=== PATIENT | male | born 1955 | race Caucasian/White ===

== ENCOUNTER 2020-02-04 16:57 | Inpatient (IN) | payer MEDICARE, OTHER ==
[~2020-02-04] VITALS: Ht 182.9 cm; Wt 88.0 kg
--- NOTE | 2020-02-04 17:20 | NUR ---
Pt seen and examined by Dr Escamilla.
[2020-02-04] MEDS ORDERED: LORA-258 PO ×2 (17:40→17:59)
[2020-02-04] MEDS ORDERED: DIVA125C2 PO (17:40)
[2020-02-04] MEDS ORDERED: MAG355OR18 PO (17:40)
[2020-02-04] MEDS ORDERED: TEMA15CA PO (17:40)
[2020-02-04] MEDS ORDERED: MAGN400O6 PO (17:40)
[2020-02-04] MEDS ORDERED: DIVA500T2 PO (17:40)
[2020-02-04] MEDS ORDERED: HALO5TAB PO (17:40)
[2020-02-04] MEDS ORDERED: GABA-532 PO (17:40)
[2020-02-04 17:49] LABS: BASOPHILS # (AUTO) 0.1 K/uL (0.0-8.0); BASOPHILS % (AUTO) 1.1 % (0.0-2.0); EOSINOPHILS # (AUTO) 0.2 K/uL (0.0-0.7); EOSINOPHILS % (AUTO) 2.7 % (0.0-7.0); HEMATOCRIT 36.8 % (36.7-47.1); HEMOGLOBIN 12.3 g/dL (12.5-16.3); LYMPHOCYTES # (AUTO) 2.5 K/uL (20.0-40.0); LYMPHOCYTES % (AUTO) 29.6 % (20.5-51.5); MEAN CORPUSCULAR HEMOGLOBIN 30.7 uug (23.8-33.4); MEAN CORPUSCULAR HGB CONC 33 g/dL (32.5-36.3); MEAN CORPUSCULAR VOLUME 92.1 fL (73.0-96.2); MONOCYTES # (AUTO) 0.9 K/uL (2.0-10.0); NEUTROPHILS # (AUTO) 4.9 K/uL (1.8-8.9); NEUTROPHILS % (AUTO) 56.6 % (38.5-71.5); PLATELET COUNT (AUTO) 439 K/uL (152-348); WHITE BLOOD COUNT (AUTO) 8.6 K/uL (3.6-10.2)
[2020-02-04] MEDS ORDERED: TAMS-3 PO (17:59)
[2020-02-04] MEDS ORDERED: ACET-2154 PO (17:59)
[2020-02-04 18:02] LABS: CREATININE 0.7 mg/dL (0.6-1.3); POTASSIUM 4.3 mmol/L (3.5-5.1)
--- NOTE | 2020-02-04 18:02 | NUR ---
Fluids provided per pt request. No difficulty w/ swallowing.
[2020-02-04 18:08] LABS: ACETAMINOPHEN < 2.0 ug/mL (10-30)
--- NOTE | 2020-02-04 18:18 | NUR ---
Hospital dinner tray provided, Pt ate 100% of food.
--- NOTE | 2020-02-04 19:30 | NUR ---
Received patient from daysmeft RN, unable to collect urine at this time
--- NOTE | 2020-02-04 20:02 | NUR ---
Bertha from crisis team called, states she will arrive on unit for Eval in 1 hour
--- NOTE | 2020-02-04 20:32 | NUR ---
urine sent to lab at this time
[2020-02-04 20:40] LABS: *BILIRUBIN,URIN NEGATIVE (NEGATIVE); *BLOOD, URINE NEGATIVE (NEGATIVE); *CLARITY,URINE CLEAR (CLEAR); *COLOR,URINE YELLOW (YELLOW); *KETONES,URINE NEGATIVE (NEGATIVE); *UROBILINOGEN,URINE 0.2 E.U./dl (NORMAL); LEUKOCYTE ESTERASE ,URINE NEGATIVE (NEGATIVE); NITRITE, URINE NEGATIVE (NEGATIVE)
[2020-02-04 20:45] LABS: UGLUCOSE 1+ (NEGATIVE)
--- NOTE | 2020-02-04 20:48 | NUR ---
Bertha from crisis team noted doing assessment
[2020-02-04 20:50] LABS: *AMPHETAMINE, URINE NEGATIVE (NEGATIVE); *BARBITURATE, URINE NEGATIVE (NEGATIVE); *CANNABINOID, URINE NEGATIVE (NEGATIVE); *COCCAINE, URINE NEGATIVE (NEGATIVE); *OPIATE, URINE NEGATIVE (NEGATIVE); *PHENCYCLIDINE SCREEN,URINE NEGATIVE (NEGATIVE)
--- NOTE | 2020-02-04 21:45 | NUR ---
Patient placed on hold for gravely disabled and danger to others
--- NOTE | 2020-02-04 21:50 | NUR ---
report given to Isrrael JOSEPH on MHU unit bed 145B
--- NOTE | 2020-02-04 22:26 | NUR ---
Pt. admitted to MHU , under care of Dr. Carmen, receiving nurse in Isr[place] RN Belongs List completed and all belongings sent wit patient, no signs of distress
[2020-02-04 22:30] VITALS: BP 150/84
[2020-02-04] MEDS ORDERED: ACETAMINOPHEN 325 MG TABLET PO PRN (22:30)
[2020-02-04] MEDS ORDERED: TEMAZEPAM 7.5 MG CAPSULE PO PRN (22:30)
[2020-02-04] MEDS ORDERED: MAG HYDROX/AL HYDROX/SIMETH 30 ML LIQUID UDC PO PRN ×2 (22:30)
[2020-02-04] MEDS ORDERED: MAGNESIUM HYDROXIDE 30 ML LIQUID UDC PO PRN ×2 (22:30)
[2020-02-04] MEDS ORDERED: BLOOD SUGAR DIAGNOSTIC 1 EACH STRIP VI ONE (22:30)
[2020-02-05 07:44] VITALS: BP 141/86
[2020-02-05] MEDS: TAMSULOSIN HCL 0.4 MG CAP.SR.24H PO SCH ×2 (08:12→17:21)
[2020-02-05] MEDS: GABAPENTIN 100 MG CAPSULE PO SCH ×3 (08:12→17:22)
[2020-02-05] MEDS: NICOTINE 14 MG/24HR PATCH TD SCH (08:12)
[2020-02-05] MEDS: DIVALPROEX 500 MG TABLET.DR PO SCH ×2 (10:15→17:21)
[2020-02-05] MEDS: HALOPERIDOL 5 MG TABLET PO SCH ×2 (10:15→12:18)
--- NOTE | 2020-02-05 10:48 | NUR ---
SW Family Contact: This technical writer and editor contacted pt's cousin Anamaria ([phone]) and left a voicemail in regard to pt's discharge plan and treatment plan.
--- NOTE | 2020-02-05 10:48 | NUR ---
SW Initial Discharge Plan: Patient currently resides at [facility] [address] [place] [address]; ([phone]). This contract writer spoke with admin Lore ([phone]) who stated that pt is welcomed back upon dc. This contract writer contacted pt's cousin Anamaria ([phone]) and left a voicemail in regard to pt's discharge plan and treatment plan. This contract writer will work with the MD, Family, and Treatment team to help coordinate proper discharge plan.
--- NOTE | 2020-02-05 10:49 | NUR ---
Firearms Report: Marine Engineering Professor completed and submitted a [employer] firearms report for 5150 grave disability certification. A copy of report has been placed in patient chart.
[2020-02-05 15:47] VITALS: BP 130/86
[2020-02-05] MEDS ORDERED: HALOPERIDOL 5 MG TABLET PO SCH (17:00)
[2020-02-05] MEDS: BENZTROPINE MESYLATE 1 MG TABLET PO SCH (17:21)
--- NOTE | 2020-02-05 17:55 | NUR ---
received patient is restless and disorganized ,compliant with all po medication ,attends and participated group activity.
[2020-02-05 20:00] VITALS: BP 136/86
[2020-02-05] MEDS ORDERED: DIVALPROEX 500 MG TABLET.DR PO SCH (21:00)
[2020-02-05] MEDS: CLONAZEPAM 0.5 MG TABLET PO PRN (21:32)
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
[2020-02-05] MEDS ORDERED: HALOPERIDOL LACTATE 5 MG/1 ML VIAL IM STA (23:11)
[2020-02-05] MEDS ORDERED: BENZTROPINE MESYLATE 2 MG/2 ML AMPUL IM STA (23:11)
[2020-02-05] MEDS ORDERED: LORAZEPAM 2 MG/1 ML VIAL IM STA (23:11)
--- NOTE | 2020-02-05 23:15 | NUR ---
Patient out of control, aggressive with the staff, unable to be redirected. Dr. Kwok called , orders received for IM injection. Monitoring closely for further behavior escalation.
--- NOTE | 2020-02-05 23:42 | NUR ---
Received patient walking in the hallway AO x2 Hyperverbal ,garbled in speech,disorganized and restless.Redirected and re-orientation rendered.Compliant with medication. Will continue to monitor. Addendum: 02/06/20 at 0110 by JOSH SUAREZ RN Initial sandra 1934:
[2020-02-06] MEDS: CLONAZEPAM 0.5 MG TABLET PO PRN ×3 (06:29→21:23)
--- NOTE | 2020-02-06 06:36 | NUR ---
Patient slept about 4 hrs.Got up walking towards the nurse station ,agitated and insisting to give all his books.PRN med given. Will continue to monitor closely.
[2020-02-06] MEDS ORDERED: LORAZEPAM 2 MG/1 ML VIAL IM ONE (07:30)
[2020-02-06] MEDS ORDERED: HALOPERIDOL LACTATE 5 MG/1 ML VIAL IM ONE (07:30)
--- NOTE | 2020-02-06 07:45 | NUR ---
Patient restless agitated, pacing back and forth the hallway and nurse's station, been disruptive to other patient's and been disrespect-full to staff. Not following commands at this times.
--- NOTE | 2020-02-06 07:48 | NUR ---
Patient medicated as ordered with the help of security staff and discharge rn.
[2020-02-06] MEDS: BENZTROPINE MESYLATE 1 MG TABLET PO SCH ×2 (08:10→16:47)
[2020-02-06] MEDS: TAMSULOSIN HCL 0.4 MG CAP.SR.24H PO SCH ×2 (08:10→16:47)
[2020-02-06] MEDS: GABAPENTIN 100 MG CAPSULE PO SCH ×3 (08:10→16:47)
[2020-02-06] MEDS: HALOPERIDOL 5 MG TABLET PO SCH (08:10)
[2020-02-06] MEDS: NICOTINE 14 MG/24HR PATCH TD SCH (08:10)
[2020-02-06] MEDS ORDERED: BENZTROPINE MESYLATE 2 MG/2 ML AMPUL IM ONE (08:30)
[2020-02-06] MEDS ORDERED: BENZTROPINE MESYLATE 2 MG/2 ML AMPUL IM SCH (09:00)
--- NOTE | 2020-02-06 10:14 | NUR ---
With Pt's Dr. Kwok in the unit patient having another episode of restlessness and agitation, been combative, not following commands. Orders received, and implemented.
[2020-02-06] MEDS ORDERED: OLANZAPINE ZYDIS 5 MG TAB.RAPDIS PO ONE (10:15)
[2020-02-06 11:01] LABS: ALANINE AMINOTRANSFERASE 18 U/L (16-63); ALKALINE PHOSPHATASE 57 U/L (50-136); ASPARTATE AMINOTRANSFERASE 12 U/L (15-37); BILIRUBIN,TOTAL 0.3 mg/dL (0.2-1.0); CARBON DIOXIDE 26 mmol/L (21-32); CHLORIDE 102 mmol/L (98-107); CREATININE 0.6 mg/dL (0.6-1.3); GLUCOSE 124 mg/dL (74-106); POTASSIUM 4.4 mmol/L (3.5-5.1); TOTAL PROTEIN, SERUM 6.2 g/dL (6.4-8.2); UREA NITROGEN, BLOOD 12 mg/dL (7-18)
[2020-02-06 11:24] LABS: BASOPHILS # (AUTO) 0.1 K/uL (0.0-8.0); BASOPHILS % (AUTO) 0.9 % (0.0-2.0); EOSINOPHILS # (AUTO) 0.1 K/uL (0.0-0.7); EOSINOPHILS % (AUTO) 1.3 % (0.0-7.0); HEMATOCRIT 37.7 % (36.7-47.1); HEMOGLOBIN 12.5 g/dL (12.5-16.3); LYMPHOCYTES # (AUTO) 1.8 K/uL (20.0-40.0); LYMPHOCYTES % (AUTO) 24.2 % (20.5-51.5); MEAN CORPUSCULAR HEMOGLOBIN 30.7 uug (23.8-33.4); MEAN CORPUSCULAR HGB CONC 33 g/dL (32.5-36.3); MEAN CORPUSCULAR VOLUME 92.6 fL (73.0-96.2); MONOCYTES # (AUTO) 0.9 K/uL (2.0-10.0); NEUTROPHILS # (AUTO) 4.5 K/uL (1.8-8.9); NEUTROPHILS % (AUTO) 61.6 % (38.5-71.5); PLATELET COUNT (AUTO) 416 K/uL (152-348); RED BLOOD CELL COUNT(AUTO) 4.07 MIL/uL (4.06-5.63); WHITE BLOOD COUNT (AUTO) 7.3 K/uL (3.6-10.2)
--- NOTE | 2020-02-06 11:31 | NUR ---
TABITHA Individual Therapy: This comic book writer attempted to conduct brief therapy with pt, however, pt refused therapy at this moment. Pt's speech is unclear. Pt rambles while this comic book writer attempts to have a conversation. Pt is not cooperative with this comic book writer at this moment.
[2020-02-06] MEDS: OLANZAPINE 5 MG TABLET PO SCH ×2 (12:16→16:47)
[2020-02-06] MEDS ORDERED: OXCARBAZEPINE 150 MG TABLET PO SCH (13:00)
[2020-02-06] MEDS: LORAZEPAM 1 MG TABLET PO PRN ×2 (13:01→20:27)
--- NOTE | 2020-02-06 14:09 | NUR ---
received a call from , , orders made to DC trileptal, verify orders and carried out
[2020-02-06 16:00] VITALS: BP 112/72
[2020-02-06] MEDS: METFORMIN HCL 500 MG TABLET PO SCH (17:00)
--- NOTE | 2020-02-06 20:00 | NUR ---
Received patient restless, pacing in the hallway carrying a book in hand, speech garbled and mumbles when answering questions with saliva drooling. Very distracted; redirected frequently. Advised of fall precautions and safety when in bed. Medicated with Ativan po.
--- NOTE | 2020-02-06 20:08 | NUR ---
Refused VS check by GRINDER MACHINE KNIFE SETTER. Advised. VS taken prior to Ativan po. GJ=518/67, HR=95.
[2020-02-06] MEDS: GABAPENTIN 300 MG CAPSULE PO SCH (20:17)
[2020-02-06 20:25] VITALS: BP 125/67
--- NOTE | 2020-02-06 21:20 | NUR ---
Bed alarms frequently as patient is in and out of bed even after Ativan. Snacks provided per patient's request. Medicated with Klonopin. Compliant with medications.
--- NOTE | 2020-02-07 01:30 | NUR ---
Up to the BR with assistance; gait unsteady. Voided. Fall precautions maintained; monitored closely.
--- NOTE | 2020-02-07 04:30 | NUR ---
Up to the BR every hour to void. Showered with assistance. Back to bed.
[2020-02-07] MEDS: LORAZEPAM 1 MG TABLET PO PRN ×3 (05:36→20:50)
--- NOTE | 2020-02-07 06:52 | NUR ---
Still with on and off mild agitation. In and out of bed, exercising, doing push ups and to the BR often. Had 2 doses of Ativan po last dose 0536. Slept for 5 hours.
[2020-02-07] MEDS ORDERED: OLANZAPINE 10 MG VIAL IM ONE (07:45)
[2020-02-07] MEDS ORDERED: LORAZEPAM 2 MG/1 ML VIAL IM ONE (07:45)
[2020-02-07] MEDS: OLANZAPINE 5 MG TABLET PO SCH ×3 (08:00→20:26)
[2020-02-07] MEDS: NICOTINE 14 MG/24HR PATCH TD SCH (08:00)
[2020-02-07] MEDS: TAMSULOSIN HCL 0.4 MG CAP.SR.24H PO SCH ×2 (08:00→16:33)
[2020-02-07] MEDS: METFORMIN HCL 500 MG TABLET PO SCH ×2 (08:00→17:12)
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
[2020-02-07] MEDS: ACETAMINOPHEN 325 MG TABLET PO SCH (08:02)
[2020-02-07] MEDS: GABAPENTIN 300 MG CAPSULE PO SCH ×4 (08:10→20:25)
[2020-02-07] MEDS ORDERED: risperiDONE-M 0.5 MG TAB.RAPDIS PO SCH (09:30)
[2020-02-07] MEDS: risperiDONE-M 0.5 MG TAB.RAPDIS PO SCH ×3 (09:48→16:34)
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
[2020-02-07 12:11] LABS: ALANINE AMINOTRANSFERASE 16 U/L (16-63); ALKALINE PHOSPHATASE 50 U/L (50-136); ASPARTATE AMINOTRANSFERASE 17 U/L (15-37); BILIRUBIN,TOTAL 0.2 mg/dL (0.2-1.0); CARBON DIOXIDE 29 mmol/L (21-32); CHLORIDE 100 mmol/L (98-107); CHOLESTEROL 155 mg/dL (<200); CREATININE 0.6 mg/dL (0.6-1.3); GLUCOSE 157 mg/dL (74-106); HDL CHOLESTEROL 66 mg/dL (40-60); POTASSIUM 4.3 mmol/L (3.5-5.1); TOTAL PROTEIN, SERUM 6.5 g/dL (6.4-8.2); TRIGLYCERIDES 94 MG/DL (30-150); UREA NITROGEN, BLOOD 12 mg/dL (7-18)
[2020-02-07] MEDS ORDERED: LACTULOSE 20 G/30 ML LIQUID UDC PO ONE ×2 (13:00)
[2020-02-07 20:30] VITALS: BP 109/70
--- NOTE | 2020-02-07 20:50 | NUR ---
GPS: patient restless, pacing in the hallway. 1:1 SITTER monitoring him closely. patient speech garbled and Very distracted; redirected frequently. Medicated with Ativan 1 mg po prn. continue plan of care.MD aware.
--- NOTE | 2020-02-07 21:50 | NUR ---
patient is calm now. prn effective.
[2020-02-07] MEDS: TEMAZEPAM 15 MG CAPSULE PO PRN (22:34)
--- NOTE | 2020-02-08 06:35 | NUR ---
GPS: Patient remains 1:1 sitter @ beds side, most of the night remained restless agitated and pacing back and forth in the hallway. ativan given x1 for agitation and effective. slept 2.45 hrs only after sleeping meds given.. Patient not following commands. continue monitor for safety.
[2020-02-08 07:30] VITALS: BP 122/88
[2020-02-08] MEDS: OLANZAPINE 5 MG TABLET PO SCH ×3 (09:30→20:17)
[2020-02-08] MEDS: NICOTINE 14 MG/24HR PATCH TD SCH (09:34)
[2020-02-08] MEDS: METFORMIN HCL 500 MG TABLET PO SCH ×2 (09:34→17:09)
[2020-02-08] MEDS: risperiDONE-M 0.5 MG TAB.RAPDIS PO SCH ×3 (09:34→16:15)
[2020-02-08] MEDS: GABAPENTIN 300 MG CAPSULE PO SCH ×4 (09:34→20:16)
[2020-02-08] MEDS: TAMSULOSIN HCL 0.4 MG CAP.SR.24H PO SCH ×2 (09:34→16:14)
[2020-02-08] MEDS: LORAZEPAM 1 MG TABLET PO PRN ×3 (10:09→18:20)
--- NOTE | 2020-02-08 12:59 | NUR ---
PC Hearing: Patient had his probable cause hearing today and it was upheld for grave disability and danger to others.
--- NOTE | 2020-02-08 13:00 | NUR ---
Gps/Chief Station Engineer- Remains with 1:1 sitter, patient remains anxious, restless, intrusive, labile mood, loud, staff has difficulty redirecting patient, constant supervision. , gets arguementive. Kept trying to get inside the Nurses station wants to check lockers.
[2020-02-08 16:00] VITALS: BP 133/75
[2020-02-08] MEDS: LITHIUM CARBONATE 150 MG CAPSULE PO SCH (16:13)
[2020-02-08] MEDS: busPIRone 5 MG TABLET PO SCH (16:14)
--- NOTE | 2020-02-08 16:19 | NUR ---
Gps/Switchgear Repairer- Quiet this pm, staying in bed, praying and keeping his bible next to him. remains with a sitter, , close supervision.
[2020-02-08 20:00] VITALS: BP 121/80
--- NOTE | 2020-02-09 05:29 | NUR ---
GPS/ Pt was received in his room with 1:1 sitter by bedside. Pt was awake and unkempt and disheveled. Pt was noted continue talking to himself and frequently walk to the door, bathroom, getting water and putting down on the floor and lay on the floor disorganized behavior. While awake pt is noted constantly moving his books and arrange and rearranging them over and over. per 1:1 pt is very unstable and irritated very easily, and use pressured speech when talking to 1:1. Pt is very delusional and paranoid. Cooperative with routine medications, no PRN given at this time. Will continue monitor. Pt slept about 3.45mins tonight in total.
[2020-02-09 07:30] VITALS: BP 120/76
[2020-02-09] MEDS: METFORMIN HCL 500 MG TABLET PO SCH ×2 (08:10→17:02)
[2020-02-09] MEDS: OLANZAPINE 5 MG TABLET PO SCH ×3 (08:10→20:25)
[2020-02-09 08:11] LABS: BASOPHILS # (AUTO) 0.1 K/uL (0.0-8.0); BASOPHILS % (AUTO) 0.9 % (0.0-2.0); BILIRUBIN,DIRECT 0.2 mg/dL (0.0-0.2); BILIRUBIN,TOTAL 0.4 mg/dL (0.2-1.0); CREATININE 0.7 mg/dL (0.6-1.3); EOSINOPHILS # (AUTO) 0.2 K/uL (0.0-0.7); EOSINOPHILS % (AUTO) 2.7 % (0.0-7.0); HEMATOCRIT 39.3 % (36.7-47.1); LYMPHOCYTES # (AUTO) 1.9 K/uL (20.0-40.0); LYMPHOCYTES % (AUTO) 24.8 % (20.5-51.5); MEAN CORPUSCULAR HEMOGLOBIN 30.6 uug (23.8-33.4); MEAN CORPUSCULAR HGB CONC 33 g/dL (32.5-36.3); MEAN CORPUSCULAR VOLUME 92.2 fL (73.0-96.2); MONOCYTES # (AUTO) 0.9 K/uL (2.0-10.0); MONOCYTES % (AUTO) 11.8 % (0.0-11.0); NEUTROPHILS # (AUTO) 4.6 K/uL (1.8-8.9); NEUTROPHILS % (AUTO) 59.8 % (38.5-71.5); PLATELET COUNT (AUTO) 429 K/uL (152-348); RED BLOOD CELL COUNT(AUTO) 4.26 MIL/uL (4.06-5.63); TOTAL PROTEIN, SERUM 6.8 g/dL (6.4-8.2); WHITE BLOOD COUNT (AUTO) 7.7 K/uL (3.6-10.2)
[2020-02-09] MEDS: TAMSULOSIN HCL 0.4 MG CAP.SR.24H PO SCH ×2 (08:11→16:29)
[2020-02-09] MEDS: risperiDONE-M 0.5 MG TAB.RAPDIS PO SCH ×3 (08:11→16:28)
[2020-02-09] MEDS: busPIRone 5 MG TABLET PO SCH ×3 (08:11→16:29)
[2020-02-09] MEDS: GABAPENTIN 300 MG CAPSULE PO SCH ×4 (08:11→20:24)
[2020-02-09] MEDS: LITHIUM CARBONATE 150 MG CAPSULE PO SCH ×3 (08:12→16:31)
[2020-02-09] MEDS: NICOTINE 14 MG/24HR PATCH TD SCH (08:12)
--- NOTE | 2020-02-09 14:30 | NUR ---
The patient had lunch. The tech will perform Ultrasiund tomorrow morning, RN noted.
[2020-02-09] MEDS: LORAZEPAM 1 MG TABLET PO PRN ×2 (15:13→22:43)
--- NOTE | 2020-02-09 16:38 | NUR ---
Gps/Reforestation Worker- Bizarre behavior, noted sitting on the toilet commode, with pillow , reading his bible, talking to himself. Mumbles , discouraged from talking fast , words unclear . Remains with a sitter , needed constant redirections, , restless, fidgety , unpredictable behavior..
[2020-02-09] MEDS ORDERED: busPIRone 5 MG TABLET PO SCH (17:00)
[2020-02-09] MEDS ORDERED: LITHIUM CARBONATE 150 MG CAPSULE PO ONE (17:00)
[2020-02-09] MEDS ORDERED: busPIRone 5 MG TABLET PO ONE (17:05)
[2020-02-09 20:00] VITALS: BP 136/82
--- NOTE | 2020-02-09 22:45 | NUR ---
Gps: patient noted anxious, restless, intrusive, labile mood, loud, staff has difficulty redirecting patient, Kept trying to get inside the Nurses station. ativan 1 mg po given for agitation.
--- NOTE | 2020-02-09 23:45 | NUR ---
gps: patient is calm now. prn effective for agitation.
[2020-02-10] MEDS: TEMAZEPAM 15 MG CAPSULE PO PRN ×2 (01:02→22:23)
--- NOTE | 2020-02-10 05:48 | NUR ---
GPS: Patient remains 1:1 sitter @ beds side, most of the night remained restless agitated and pacing back and forth in the hallway. ativan given x1 for agitation and effective. Patient not following commands. continue monitor for safety.
--- NOTE | 2020-02-10 06:30 | NUR ---
slept 4 hrs through the night after sleeping meds given.
[2020-02-10] MEDS: LORAZEPAM 1 MG TABLET PO PRN ×3 (07:00→18:40)
--- NOTE | 2020-02-10 07:01 | NUR ---
patient is very aggressive,screaming loud pacing back and forth in the hallway. ativan 1 mg po given for agitation.
[2020-02-10 07:30] VITALS: BP 118/77
[2020-02-10] MEDS: GABAPENTIN 300 MG CAPSULE PO SCH ×4 (08:10→20:22)
[2020-02-10] MEDS: busPIRone 5 MG TABLET PO SCH ×3 (08:10→16:10)
[2020-02-10] MEDS: NICOTINE 14 MG/24HR PATCH TD SCH (08:10)
[2020-02-10] MEDS: LITHIUM CARBONATE 300 MG CAPSULE PO SCH ×2 (08:10→16:11)
[2020-02-10] MEDS: TAMSULOSIN HCL 0.4 MG CAP.SR.24H PO SCH ×2 (08:11→16:11)
[2020-02-10] MEDS: OLANZAPINE 5 MG TABLET PO SCH ×3 (08:11→20:22)
[2020-02-10] MEDS: risperiDONE-M 0.5 MG TAB.RAPDIS PO SCH ×3 (08:11→16:10)
[2020-02-10] MEDS: METFORMIN HCL 500 MG TABLET PO SCH ×2 (08:12→17:22)
--- NOTE | 2020-02-10 09:00 | NUR ---
Gps/Aircraft Manager - Calmer at this time, in his room sitting at the dge of his bed, reading his bible, abrupt movements , appeared like he is going to attack someone, staff needing to be firm with patient in giving instructions.Hyperverbal /mumbles , speech gets garbled , instructed to talk slower to be able to understand . Always asking for more food .
--- NOTE | 2020-02-10 09:36 | NUR ---
The patient is combative. Unable to perform the exam. RN Kellee Goodson noted.
[2020-02-10] MEDS ORDERED: risperiDONE 0.5 MG TABLET PO ONE (12:45)
[2020-02-10 16:30] VITALS: BP 139/61
--- NOTE | 2020-02-10 16:33 | NUR ---
Gps/Funeral Home Makeup Artist- Walks around carrying his books , restless, fidgety , hyperverbal, encouraged to talk slower, speech gets garbled when talking fast, constantly asking for something.
--- NOTE | 2020-02-10 18:27 | NUR ---
Gps/Prize Jacker-Showered self with min assist, > anxious, kept coming inside the Nurses station, needing constant redirections, remains with a sitter for safety, continue to monitor behavior, set limits.
[2020-02-10 20:00] VITALS: BP 126/69
[2020-02-11 09:28] VITALS: BP 115/74
[2020-02-11] MEDS: TAMSULOSIN HCL 0.4 MG CAP.SR.24H PO SCH ×2 (09:39→17:04)
[2020-02-11] MEDS: busPIRone 5 MG TABLET PO SCH ×3 (09:39→17:00)
[2020-02-11] MEDS: OLANZAPINE 5 MG TABLET PO SCH ×3 (09:39→20:29)
[2020-02-11] MEDS: risperiDONE-M 0.5 MG TAB.RAPDIS PO SCH ×3 (09:39→17:00)
[2020-02-11] MEDS: GABAPENTIN 300 MG CAPSULE PO SCH ×4 (09:39→20:29)
[2020-02-11] MEDS: LITHIUM CARBONATE 300 MG CAPSULE PO SCH ×2 (09:39→17:00)
[2020-02-11] MEDS: METFORMIN HCL 500 MG TABLET PO SCH ×2 (09:39→17:00)
[2020-02-11] MEDS: NICOTINE 14 MG/24HR PATCH TD SCH (09:39)
--- NOTE | 2020-02-11 10:51 | NUR ---
TABITHA Individual Therapy Note: SW met with pt to provide brief counseling. Pt appeared verbally abusive towards the advertising copywriter and was unable to have a proper conversation due to his unclear speech. This advertising copywriter was unable to provide brief counseling at this moment.
[2020-02-11 15:27] LABS: *BILIRUBIN,URIN NEGATIVE (NEGATIVE); *BLOOD, URINE NEGATIVE (NEGATIVE); *CLARITY,URINE CLEAR (CLEAR); *COLOR,URINE YELLOW (YELLOW); *KETONES,URINE NEGATIVE (NEGATIVE); *UROBILINOGEN,URINE 0.2 E.U./dl (NORMAL); LEUKOCYTE ESTERASE ,URINE NEGATIVE (NEGATIVE); NITRITE, URINE NEGATIVE (NEGATIVE)
[2020-02-11 15:29] LABS: UGLUCOSE 2+ (NEGATIVE)
[2020-02-11 16:00] VITALS: BP 133/88
[2020-02-11 17:56] VITALS: BP 133/88
[2020-02-11 20:00] VITALS: BP 132/78
[2020-02-11] MEDS: LORAZEPAM 1 MG TABLET PO PRN (20:29)
[2020-02-11] MEDS: TEMAZEPAM 15 MG CAPSULE PO PRN (21:39)
[2020-02-11] MEDS ORDERED: BENZTROPINE MESYLATE 2 MG/2 ML AMPUL IM STA (22:34)
[2020-02-11] MEDS ORDERED: diphenhydrAMINE 50 MG/1 ML VIAL IM STA (22:34)
[2020-02-11] MEDS ORDERED: HALOPERIDOL LACTATE 5 MG/1 ML VIAL IM STA (22:34)
--- NOTE | 2020-02-12 05:01 | NUR ---
GPS- 1920: During round making noted pt already restless and responding to internal stimuli and moving back and forth in room to TV room and nursing station. Pt continually requesting for something and unable to express it clearly, staffs attempted to give him his books but he will become more irritated and angry. Pt unable to be redirected or reality oriented due to diagnosis. Patient assigned to 1:1 sitter pt behavior was not to controlled or managed by sitter present. PRN ativan was administered with no effect. Pt was acting very dangerous to staffs and peers, intrusive and unable to redirect. Medication was not effect. Restoril was given too and still not effective. Pt was becoming too aggressive and continue outburst and was not able to keep calm. Deu to Fear of harm to others PRN IM Haloperidol 5mg, Benztropine 2mg and Benadryl 25mg order received from Rissa Gunter x1. Order was administered with systems security consultant. Pt was monitor and no effect of medications. Still exhibiting outburst and not able to sleep. Will continue to monitor pt and will endorse to incoming nurse.
[2020-02-12 07:50] VITALS: BP 146/89
[2020-02-12] MEDS: METFORMIN HCL 500 MG TABLET PO SCH ×2 (08:46→17:13)
[2020-02-12] MEDS: risperiDONE-M 0.5 MG TAB.RAPDIS PO SCH ×3 (08:46→17:14)
[2020-02-12] MEDS: GABAPENTIN 300 MG CAPSULE PO SCH ×4 (08:46→20:47)
[2020-02-12] MEDS: TAMSULOSIN HCL 0.4 MG CAP.SR.24H PO SCH ×2 (08:47→17:13)
[2020-02-12] MEDS: busPIRone 5 MG TABLET PO SCH (08:47)
[2020-02-12] MEDS: LITHIUM CARBONATE 300 MG CAPSULE PO SCH ×2 (08:47→17:13)
[2020-02-12] MEDS: NICOTINE 14 MG/24HR PATCH TD SCH (08:50)
[2020-02-12] MEDS: OLANZAPINE 5 MG TABLET PO SCH ×2 (09:09→20:57)
[2020-02-12] MEDS: LORAZEPAM 1 MG TABLET PO SCH ×2 (12:31→17:13)
[2020-02-12] MEDS: BENZTROPINE MESYLATE 0.5 MG TABLET PO SCH ×2 (12:31→17:14)
[2020-02-12] MEDS: MEMANTINE HCL 5 MG TABLET PO SCH ×2 (12:32→20:46)
[2020-02-12 15:58] VITALS: BP 132/79
--- NOTE | 2020-02-12 18:02 | NUR ---
Patient remains the same. Still intrusive, rambling, garbled speech. Unable to have meaningful conversation. This patient is labile and easily angered, therefore has a sitter 1:1 . Continuing to monitor for safety of staff and patient, behavior escalation and combativeness. Patient has been medication compliant but very difficult to redirect.
[2020-02-12 19:40] VITALS: BP 116/75
[2020-02-12] MEDS: TEMAZEPAM 15 MG CAPSULE PO SCH (20:46)
--- NOTE | 2020-02-13 06:12 | NUR ---
GPS - Pt was received in his room, 1:1 male sitter at bedside. Pt still noted with disorganized thinking confuse. Sitter was able to reframe pt and he was more confined to his room. Pt was noted praying, talking and doing push ups lying on the floor frequently and rapidly moving from bed to floor. Cooperative with routine medication and new order for Restoril was given and noted some effect with other medications. Pt later on fall asleep. Monitor with 1:1 sitter by bedside.
--- NOTE | 2020-02-13 06:21 | NUR ---
During med pass pt accidentally dropped his med cup and the floor and Zyprexa was stepped on, replaced with another one and documented.
[2020-02-13 06:57] LABS: BILIRUBIN,TOTAL 0.4 mg/dL (0.2-1.0); CREATININE 0.7 mg/dL (0.6-1.3); POTASSIUM 4.1 mmol/L (3.5-5.1); TOTAL PROTEIN, SERUM 6.9 g/dL (6.4-8.2)
[2020-02-13 07:18] LABS: BASOPHILS # (AUTO) 0.1 K/uL (0.0-8.0); BASOPHILS % (AUTO) 0.9 % (0.0-2.0); EOSINOPHILS # (AUTO) 0.3 K/uL (0.0-0.7); EOSINOPHILS % (AUTO) 3.7 % (0.0-7.0); HEMATOCRIT 39.1 % (36.7-47.1); HEMOGLOBIN 13.2 g/dL (12.5-16.3); LYMPHOCYTES # (AUTO) 1.9 K/uL (20.0-40.0); LYMPHOCYTES % (AUTO) 25.7 % (20.5-51.5); MEAN CORPUSCULAR HEMOGLOBIN 30.9 uug (23.8-33.4); MEAN CORPUSCULAR HGB CONC 34 g/dL (32.5-36.3); MEAN CORPUSCULAR VOLUME 91.8 fL (73.0-96.2); MONOCYTES # (AUTO) 0.9 K/uL (2.0-10.0); MONOCYTES % (AUTO) 12.1 % (0.0-11.0); NEUTROPHILS # (AUTO) 4.2 K/uL (1.8-8.9); NEUTROPHILS % (AUTO) 57.6 % (38.5-71.5); PLATELET COUNT (AUTO) 402 K/uL (152-348); RED BLOOD CELL COUNT(AUTO) 4.26 MIL/uL (4.06-5.63); WHITE BLOOD COUNT (AUTO) 7.3 K/uL (3.6-10.2)
[2020-02-13 07:30] VITALS: BP 118/76
[2020-02-13] MEDS: METFORMIN HCL 500 MG TABLET PO SCH ×2 (08:00→16:23)
[2020-02-13] MEDS: MEMANTINE HCL 5 MG TABLET PO SCH ×2 (08:00→20:26)
[2020-02-13] MEDS: BENZTROPINE MESYLATE 0.5 MG TABLET PO SCH ×3 (08:00→16:23)
[2020-02-13] MEDS: TAMSULOSIN HCL 0.4 MG CAP.SR.24H PO SCH ×2 (08:00→16:24)
[2020-02-13] MEDS: GABAPENTIN 300 MG CAPSULE PO SCH ×4 (08:00→20:26)
[2020-02-13] MEDS: LITHIUM CARBONATE 300 MG CAPSULE PO SCH ×2 (08:00→16:23)
[2020-02-13] MEDS: risperiDONE-M 0.5 MG TAB.RAPDIS PO SCH ×3 (08:01→16:22)
[2020-02-13] MEDS: LORAZEPAM 1 MG TABLET PO SCH ×3 (08:01→16:23)
[2020-02-13] MEDS: OLANZAPINE 5 MG TABLET PO SCH (08:01)
[2020-02-13] MEDS: NICOTINE 14 MG/24HR PATCH TD SCH (08:02)
--- NOTE | 2020-02-13 08:18 | NUR ---
CALLED AND SPOKE WITH , WITH ORDERS TO LIGIA SITTER, ORDERS MADE AND CARRIED OUT
[2020-02-13] MEDS ORDERED: OLANZAPINE 2.5 MG TABLET PO SCH (13:15)
[2020-02-13 16:00] VITALS: BP 113/80
[2020-02-13] MEDS: OLANZAPINE 2.5 MG TABLET PO SCH (16:23)
[2020-02-13] MEDS: TEMAZEPAM 15 MG CAPSULE PO SCH (20:27)
[2020-02-13 20:41] VITALS: BP 122/76
[2020-02-13] MEDS ORDERED: LITHIUM CARBONATE 150 MG CAPSULE PO SCH (21:00)
[2020-02-13] MEDS: TEMAZEPAM 15 MG CAPSULE PO PRN (23:25)
[2020-02-13] MEDS: ACETAMINOPHEN 325 MG TABLET PO SCH (23:26)
--- NOTE | 2020-02-14 06:56 | NUR ---
PT SLEPT 6.15 HOURS. PT IN NO ACUTE DISTRESS. PRESCRIBED MEDICATION GIVEN AND PT TOLERATED IT WELL. PT PLEASANT WHEN APPROACHED. COOPERATIVE WITH CARE. AT 2325H RESTORIL GIVEN . PT TOLERATED IT WELL. PT STILL NOT SLEEPY. ADVISED PT TO TURN OFF LIGHTS AND STOP READING AND RELAX. AFTER AN HOUR PT FOUND SLEEPING . PT GIVEN TYLENOL PRN PER PT HAVE PAIN . PT HAVE A RELEIF OF PAIN AFTER AN HOUR. SAFETY AND COMFORT PROVIDED. WILL ENDORSE TO INCOMING NURSE FOR CONTINUITY OF CARE.
[2020-02-14 08:00] VITALS: BP 140/83
[2020-02-14] MEDS: METFORMIN HCL 500 MG TABLET PO SCH ×2 (08:52→16:51)
[2020-02-14] MEDS: GABAPENTIN 300 MG CAPSULE PO SCH ×4 (08:52→20:37)
[2020-02-14] MEDS: BENZTROPINE MESYLATE 0.5 MG TABLET PO SCH ×3 (08:52→16:52)
[2020-02-14] MEDS: risperiDONE-M 0.5 MG TAB.RAPDIS PO SCH ×3 (08:52→16:50)
[2020-02-14] MEDS: TAMSULOSIN HCL 0.4 MG CAP.SR.24H PO SCH ×2 (08:52→16:51)
[2020-02-14] MEDS: LITHIUM CARBONATE 300 MG CAPSULE PO SCH ×3 (08:52→20:37)
[2020-02-14] MEDS: LORAZEPAM 1 MG TABLET PO SCH ×3 (08:52→16:52)
[2020-02-14] MEDS: OLANZAPINE 2.5 MG TABLET PO SCH ×3 (08:53→16:51)
[2020-02-14] MEDS: MEMANTINE HCL 5 MG TABLET PO SCH ×2 (08:53→20:36)
[2020-02-14] MEDS: NICOTINE 14 MG/24HR PATCH TD SCH (08:54)
[2020-02-14 15:08] VITALS: BP 110/68
--- NOTE | 2020-02-14 17:00 | NUR ---
Gps/Water Main Inspector- Showered self ind. after set up. Had been cooperative with staff, continued to be meds. compliant. Gets intrusive from time to time but had been redirectable.Walks [place] carrying his bible and books.
[2020-02-14 20:00] VITALS: BP 144/83
[2020-02-14] MEDS: TEMAZEPAM 15 MG CAPSULE PO SCH (20:37)
[2020-02-14] MEDS ORDERED: LITHIUM CARBONATE 150 MG CAPSULE PO SCH (21:00)
[2020-02-14] MEDS ORDERED: LITHIUM CARBONATE 300 MG CAPSULE PO SCH (21:00)
--- NOTE | 2020-02-15 06:31 | NUR ---
Received patient last night in the day room, sitting watching TV. Patients behavior noted to be more pleasant and has more patience with the staff and peers. No acute behavioral issues noted last night Patient slept 5.30 hours.
[2020-02-15] MEDS: LORAZEPAM 1 MG TABLET PO PRN (06:47)
[2020-02-15 07:30] VITALS: BP 110/78
[2020-02-15] MEDS: METFORMIN HCL 500 MG TABLET PO SCH ×2 (09:01→17:20)
[2020-02-15] MEDS: TAMSULOSIN HCL 0.4 MG CAP.SR.24H PO SCH ×2 (09:02→17:20)
[2020-02-15] MEDS: LITHIUM CARBONATE 300 MG CAPSULE PO SCH ×3 (09:02→20:42)
[2020-02-15] MEDS: LORAZEPAM 1 MG TABLET PO SCH ×3 (09:02→17:20)
[2020-02-15] MEDS: BENZTROPINE MESYLATE 0.5 MG TABLET PO SCH ×3 (09:02→17:20)
[2020-02-15] MEDS: GABAPENTIN 300 MG CAPSULE PO SCH ×4 (09:02→20:41)
[2020-02-15] MEDS: OLANZAPINE 2.5 MG TABLET PO SCH ×3 (09:02→17:20)
[2020-02-15] MEDS: risperiDONE-M 0.5 MG TAB.RAPDIS PO SCH ×3 (09:03→17:21)
[2020-02-15] MEDS: MEMANTINE HCL 5 MG TABLET PO SCH ×2 (09:03→20:41)
[2020-02-15] MEDS: NICOTINE 14 MG/24HR PATCH TD SCH (09:04)
[2020-02-15 16:00] VITALS: BP 113/64
[2020-02-15 20:15] VITALS: BP 122/88
[2020-02-15] MEDS: TEMAZEPAM 15 MG CAPSULE PO SCH (20:41)
[2020-02-16 07:30] VITALS: BP_SYST 111; BP_SYST 119; BP_DIAS 66; BP_DIAS 71
[2020-02-16] MEDS: LITHIUM CARBONATE 300 MG CAPSULE PO SCH ×3 (08:17→20:24)
[2020-02-16] MEDS: METFORMIN HCL 500 MG TABLET PO SCH ×2 (08:17→17:21)
[2020-02-16] MEDS: LORAZEPAM 1 MG TABLET PO SCH ×3 (08:17→17:21)
[2020-02-16] MEDS: BENZTROPINE MESYLATE 0.5 MG TABLET PO SCH ×3 (08:17→17:21)
[2020-02-16] MEDS: GABAPENTIN 300 MG CAPSULE PO SCH ×4 (08:18→20:24)
[2020-02-16] MEDS: MEMANTINE HCL 5 MG TABLET PO SCH ×2 (08:18→20:24)
[2020-02-16] MEDS: TAMSULOSIN HCL 0.4 MG CAP.SR.24H PO SCH ×2 (08:18→17:21)
[2020-02-16] MEDS: risperiDONE-M 0.5 MG TAB.RAPDIS PO SCH ×3 (08:19→17:26)
[2020-02-16] MEDS: NICOTINE 14 MG/24HR PATCH TD SCH (08:20)
[2020-02-16] MEDS: OLANZAPINE 2.5 MG TABLET PO SCH ×3 (08:20→17:21)
[2020-02-16 08:21] LABS: BASOPHILS # (AUTO) 0.1 K/uL (0.0-8.0); BASOPHILS % (AUTO) 1.4 % (0.0-2.0); EOSINOPHILS # (AUTO) 0.2 K/uL (0.0-0.7); EOSINOPHILS % (AUTO) 2.8 % (0.0-7.0); HEMATOCRIT 39.3 % (36.7-47.1); LYMPHOCYTES # (AUTO) 1.8 K/uL (20.0-40.0); LYMPHOCYTES % (AUTO) 22.7 % (20.5-51.5); MEAN CORPUSCULAR HEMOGLOBIN 30.4 uug (23.8-33.4); MEAN CORPUSCULAR HGB CONC 33 g/dL (32.5-36.3); MEAN CORPUSCULAR VOLUME 91.8 fL (73.0-96.2); MONOCYTES # (AUTO) 0.6 K/uL (2.0-10.0); MONOCYTES % (AUTO) 8.1 % (0.0-11.0); NEUTROPHILS # (AUTO) 5.1 K/uL (1.8-8.9); PLATELET COUNT (AUTO) 421 K/uL (152-348); RED BLOOD CELL COUNT(AUTO) 4.28 MIL/uL (4.06-5.63); WHITE BLOOD COUNT (AUTO) 7.9 K/uL (3.6-10.2)
[2020-02-16 08:36] LABS: BILIRUBIN,TOTAL 0.4 mg/dL (0.2-1.0); CREATININE 0.7 mg/dL (0.6-1.3); POTASSIUM 4.1 mmol/L (3.5-5.1); TOTAL PROTEIN, SERUM 6.8 g/dL (6.4-8.2)
[2020-02-16 16:00] VITALS: BP 116/64
[2020-02-16] MEDS: TEMAZEPAM 15 MG CAPSULE PO SCH (20:23)
[2020-02-16 20:28] VITALS: BP 117/85
--- NOTE | 2020-02-17 06:39 | NUR ---
GPS/RN: Slept 4.30 hours. Kept asking for coffee, insisting to get it from his bag. No agitation, he's calm and cooperative. No complaint presented.
[2020-02-17 07:30] VITALS: BP 140/86
[2020-02-17] MEDS: risperiDONE-M 0.5 MG TAB.RAPDIS PO SCH ×3 (09:36→17:37)
[2020-02-17] MEDS: LORAZEPAM 1 MG TABLET PO SCH ×3 (09:36→17:36)
[2020-02-17] MEDS: MEMANTINE HCL 5 MG TABLET PO SCH ×2 (09:37→20:00)
[2020-02-17] MEDS: LITHIUM CARBONATE 300 MG CAPSULE PO SCH ×3 (09:37→20:00)
[2020-02-17] MEDS: BENZTROPINE MESYLATE 0.5 MG TABLET PO SCH ×3 (09:37→17:36)
[2020-02-17] MEDS: GABAPENTIN 300 MG CAPSULE PO SCH ×4 (09:37→20:00)
[2020-02-17] MEDS: METFORMIN HCL 500 MG TABLET PO SCH ×2 (09:37→17:36)
[2020-02-17] MEDS: OLANZAPINE 2.5 MG TABLET PO SCH ×3 (09:37→17:36)
[2020-02-17] MEDS: NICOTINE 14 MG/24HR PATCH TD SCH (09:37)
[2020-02-17] MEDS: TAMSULOSIN HCL 0.4 MG CAP.SR.24H PO SCH ×2 (09:37→17:36)
[2020-02-17 17:02] VITALS: BP 131/85
[2020-02-17] MEDS: TEMAZEPAM 15 MG CAPSULE PO SCH (20:00)
[2020-02-17 20:28] VITALS: BP 142/82
[2020-02-18 07:30] VITALS: BP 125/80
[2020-02-18] MEDS: BENZTROPINE MESYLATE 0.5 MG TABLET PO SCH ×3 (08:18→17:33)
[2020-02-18] MEDS: LORAZEPAM 1 MG TABLET PO SCH ×3 (08:18→17:33)
[2020-02-18] MEDS: OLANZAPINE 2.5 MG TABLET PO SCH ×3 (08:18→17:33)
[2020-02-18] MEDS: MEMANTINE HCL 5 MG TABLET PO SCH ×3 (08:18→21:00)
[2020-02-18] MEDS: risperiDONE-M 0.5 MG TAB.RAPDIS PO SCH ×3 (08:18→17:33)
[2020-02-18] MEDS: METFORMIN HCL 500 MG TABLET PO SCH ×2 (08:18→17:32)
[2020-02-18] MEDS: GABAPENTIN 300 MG CAPSULE PO SCH ×5 (08:18→21:00)
[2020-02-18] MEDS: TAMSULOSIN HCL 0.4 MG CAP.SR.24H PO SCH ×2 (08:18→17:32)
[2020-02-18] MEDS: LITHIUM CARBONATE 300 MG CAPSULE PO SCH ×4 (08:18→21:00)
[2020-02-18] MEDS: NICOTINE 14 MG/24HR PATCH TD SCH (08:19)
[2020-02-18 15:50] VITALS: BP 118/71
[2020-02-18] MEDS: TEMAZEPAM 15 MG CAPSULE PO SCH ×2 (20:33→21:00)
[2020-02-18 20:46] VITALS: BP 116/72
[2020-02-19] MEDS: TEMAZEPAM 15 MG CAPSULE PO SCH
[2020-02-19 07:30] VITALS: BP 123/82
[2020-02-19] MEDS: risperiDONE-M 0.5 MG TAB.RAPDIS PO SCH ×3 (08:08→16:45)
[2020-02-19] MEDS: LITHIUM CARBONATE 300 MG CAPSULE PO SCH ×5 (08:08→20:45)
[2020-02-19] MEDS: METFORMIN HCL 500 MG TABLET PO SCH ×2 (08:08→17:15)
[2020-02-19] MEDS: MEMANTINE HCL 5 MG TABLET PO SCH ×3 (08:08→20:45)
[2020-02-19] MEDS: GABAPENTIN 300 MG CAPSULE PO SCH ×5 (08:08→20:44)
[2020-02-19] MEDS: BENZTROPINE MESYLATE 0.5 MG TABLET PO SCH ×3 (08:08→16:45)
[2020-02-19] MEDS: LORAZEPAM 1 MG TABLET PO SCH ×3 (08:09→16:46)
[2020-02-19] MEDS: TAMSULOSIN HCL 0.4 MG CAP.SR.24H PO SCH ×2 (08:09→16:45)
[2020-02-19] MEDS: OLANZAPINE 2.5 MG TABLET PO SCH ×3 (08:09→16:45)
[2020-02-19] MEDS: NICOTINE 14 MG/24HR PATCH TD SCH (08:09)
--- NOTE | 2020-02-19 09:28 | NUR ---
Family Contact: SW contacted pt's cousin Anamaria ([phone]) and informed her that the pt is being discharged the following day to [facility]. Pts cousin asked to speak to the MD and the SW forwarded the message to the MD.
--- NOTE | 2020-02-19 10:01 | NUR ---
SNF Contact: TABITHA faxed updated notes to [facility] with attention to Lore to the fax number: [phone].
[2020-02-19 16:29] VITALS: BP 126/80
[2020-02-19 19:57] VITALS: BP 102/65
--- NOTE | 2020-02-19 20:00 | NUR ---
Received Patient in his room in bed sleeping, but easily arousable. patient noted calm at this time. Pt is unable to have a meaningful conversation with this gag writer. He noted mumbling words, disorganized thoughts. Pt is redirectable. V/s stable, pt is reassured for his safety. safety and fall precaution in place. will continue to monitor.
[2020-02-20] MEDS: TEMAZEPAM 15 MG CAPSULE PO SCH ×2 (01:28→21:18)
[2020-02-20 07:30] VITALS: BP 121/81
[2020-02-20] MEDS: risperiDONE-M 0.5 MG TAB.RAPDIS PO SCH ×3 (10:04→18:06)
[2020-02-20] MEDS: OLANZAPINE 2.5 MG TABLET PO SCH ×3 (10:04→18:07)
[2020-02-20] MEDS: GABAPENTIN 300 MG CAPSULE PO SCH ×4 (10:04→21:18)
[2020-02-20] MEDS: TAMSULOSIN HCL 0.4 MG CAP.SR.24H PO SCH ×2 (10:05→18:07)
[2020-02-20] MEDS: LITHIUM CARBONATE 300 MG CAPSULE PO SCH ×4 (10:05→21:17)
[2020-02-20] MEDS: MEMANTINE HCL 5 MG TABLET PO SCH ×2 (10:05→21:18)
[2020-02-20] MEDS: NICOTINE 14 MG/24HR PATCH TD SCH (10:05)
[2020-02-20] MEDS: METFORMIN HCL 500 MG TABLET PO SCH ×2 (10:05→18:06)
[2020-02-20] MEDS: BENZTROPINE MESYLATE 0.5 MG TABLET PO SCH ×3 (10:05→18:07)
[2020-02-20] MEDS: LORAZEPAM 1 MG TABLET PO SCH ×3 (10:05→18:06)
--- NOTE | 2020-02-20 10:31 | NUR ---
Family Contact: SW contacted pt's cousin Anamaria ([phone]) and informed her that the pt is not being discharged today to [facility].
[2020-02-20 16:00] VITALS: BP 130/75
--- NOTE | 2020-02-20 19:47 | NUR ---
patient uses extension phone to call 911, patient was redirected , made aware,patient been calm in his room
[2020-02-20 19:59] VITALS: BP 111/70
[2020-02-21 07:30] VITALS: BP 109/76
--- NOTE | 2020-02-21 08:28 | NUR ---
Discharge Note: Pt was discharged to [facility] ([facility]) located at [address] [place] [address]; ([phone]). Pt will be transported via [facility] at 1PM. Pts cousin, Anamaria ([phone]), was made aware of the placement. Upon discharge, the pt appeared to be in a euthymic mood and presented with a distressed affect. Pt appeared to be alert and oriented x3 (time, place and self). Pt denied both suicidal and homicidal ideation as well as auditory and visual hallucinations. Pt will continue to be under the care of psychiatrist, Dr. Kwok, located at [address] [address], [place] [address]; and jet operator, Dr. Kraft, located at [address] [place] [address]; . The multidisciplinary exit care form was done, printed, signed, and given to the patient.
[2020-02-21] MEDS: GABAPENTIN 300 MG CAPSULE PO SCH ×2 (08:40→12:34)
[2020-02-21] MEDS: OLANZAPINE 2.5 MG TABLET PO SCH ×2 (08:40→12:33)
[2020-02-21] MEDS: BENZTROPINE MESYLATE 0.5 MG TABLET PO SCH ×2 (08:40→12:33)
[2020-02-21] MEDS: LITHIUM CARBONATE 300 MG CAPSULE PO SCH ×2 (08:40→12:33)
[2020-02-21] MEDS: LORAZEPAM 1 MG TABLET PO SCH ×2 (08:41→12:34)
[2020-02-21] MEDS: risperiDONE-M 0.5 MG TAB.RAPDIS PO SCH ×2 (08:41→12:33)
[2020-02-21] MEDS: TAMSULOSIN HCL 0.4 MG CAP.SR.24H PO SCH (08:41)
[2020-02-21] MEDS: NICOTINE 14 MG/24HR PATCH TD SCH (08:42)
[2020-02-21] MEDS: METFORMIN HCL 500 MG TABLET PO SCH (08:46)
[2020-02-21 08:56] LABS: BASOPHILS # (AUTO) 0.1 K/uL (0.0-8.0); BASOPHILS % (AUTO) 0.8 % (0.0-2.0); EOSINOPHILS # (AUTO) 0.2 K/uL (0.0-0.7); EOSINOPHILS % (AUTO) 2.6 % (0.0-7.0); HEMATOCRIT 42.1 % (36.7-47.1); HEMOGLOBIN 13.9 g/dL (12.5-16.3); LYMPHOCYTES # (AUTO) 1.6 K/uL (20.0-40.0); MEAN CORPUSCULAR HEMOGLOBIN 30.3 uug (23.8-33.4); MEAN CORPUSCULAR HGB CONC 33 g/dL (32.5-36.3); MEAN CORPUSCULAR VOLUME 92.2 fL (73.0-96.2); MONOCYTES # (AUTO) 0.7 K/uL (2.0-10.0); MONOCYTES % (AUTO) 8.1 % (0.0-11.0); NEUTROPHILS # (AUTO) 5.9 K/uL (1.8-8.9); NEUTROPHILS % (AUTO) 69.5 % (38.5-71.5); PLATELET COUNT (AUTO) 412 K/uL (152-348); RED BLOOD CELL COUNT(AUTO) 4.57 MIL/uL (4.06-5.63); WHITE BLOOD COUNT (AUTO) 8.5 K/uL (3.6-10.2)
[2020-02-21 09:07] LABS: BILIRUBIN,TOTAL 0.3 mg/dL (0.2-1.0); CREATININE 0.8 mg/dL (0.6-1.3); POTASSIUM 4.1 mmol/L (3.5-5.1); TOTAL PROTEIN, SERUM 7.4 g/dL (6.4-8.2)
--- NOTE | 2020-02-21 10:31 | NUR ---
Family Contact: SW contacted pt's cousin Anamaria ([phone]) and left a voicemail that informed her that the pt is going to be discharged to [facility].
[2020-02-21] MEDS: MEMANTINE HCL 5 MG TABLET PO SCH (10:44)
--- NOTE | 2020-02-21 11:59 | NUR ---
Gps/Welding Machine Tender- Called Holiday Vinh Rivera. report was given to Salvatore Schwarz.All belongings given back to patient.Patient will be picked up by ambulance at 1230. Cousin Anamaria was well informed of his dc. plan this pm. Patient also was well informed, no complaints .
--- NOTE | 2020-02-21 12:51 | NUR ---
Gps/Hand Baseball Sewer-[facility], patient in no distress, ate well during lunch no complaints noted. all belongings given back to patient.
== END 2020-02-21 12:50 | DRG 885 ==
LOC: ER 16:57 → GPS 22:02
PROVIDERS: ADMIT Psychiatry & Neurology Psychosomatic Medicine; ATTEND Family Medicine
DX: F25.0 Schizoaffective disorder, bipolar type (principal); F05 Delirium due to known physiological condition; E44.1 Mild protein-calorie malnutrition; E72.4 Disorders of ornithine metabolism; F23 Brief psychotic disorder; F01.50 Vascular dementia, unspecified severity, without behavioral disturbance, psychotic disturbance, mood disturbance, and anxiety; E88.09 Other disorders of plasma-protein metabolism, not elsewhere classified; Z73.6 Limitation of activities due to disability; R73.9 Hyperglycemia, unspecified; Z68.26 Body mass index [BMI] 26.0-26.9, adult
CPT/HCPCS: 36415; 70030-TC; 71045; 76705; 80164; 80307; 85025; 87086; 93005; A4663; G0480; G0480-TC; J0515; J1200; J1630; J2060; J2358